=== PATIENT | female | born 1975 | race Caucasian/White ===

== ENCOUNTER → 2020-09-20 09:52 | Outpatient (BNVA) | payer OTHER, SELFPAY | PROVIDERS: Visit Provider Psychiatry & Neurology Psychiatry | DX: Z03.89 Encounter for observation for other suspected diseases and conditions ruled out (principal) | CPT/HCPCS: 80048; 80061; 83036; 85025 ==

== ENCOUNTER → 2021-06-27 08:10 | Outpatient (BNVA) | payer OTHER, SELFPAY | PROVIDERS: Visit Provider Psychiatry & Neurology Psychiatry | DX: Z79.899 Other long term (current) drug therapy (principal); Z03.89 Encounter for observation for other suspected diseases and conditions ruled out; F32.9 Major depressive disorder, single episode, unspecified; F41.9 Anxiety disorder, unspecified | CPT/HCPCS: 80053; 80061; 83036; 84443; 85025 ==

== ENCOUNTER 2022-09-26 07:11 | Outpatient (CLI) | payer OTHER, SELFPAY ==
--- NOTE | 2022-09-26 07:29 | MR_ITS ---
WS: [id number] MRI LUMBAR SPINE NONCONTRAST TECHNIQUE: Sagittal T1, T2 and STIR imaging. Axial T1 and T2 imaging. CLINICAL INFORMATION: CHRONIC LOW BACK PAIN W/O SCIATICA COMPARISON: None. FINDINGS: Mild lumbar curve. No acute compression. Disc space narrowing worse at L5-S1. L1-L2: Normal L2-L3: Mild annular bulging. Slight narrowing of the RIGHT subarticular recess. Mild RIGHT foraminal narrowing. Mild facet arthropathy. L3-L4: Mild annular bulging. Narrowing of the LEFT subarticular recess. Small LEFT foraminal protrusi on with annular fissure slightly impinges the exiting LEFT L3 nerve root. Moderate facet arthropathy. L4-L5: Mild annular bulging with slight effacement of ventral thecal sac. Narrowing of the subarticul ar recess bilaterally. LEFT eccentric disc bulging with mild LEFT greater than RIGHT foraminal narrow ing. Moderate facet arthropathy. L5-S1: Mild annular bulging with a tiny shallow central protrusion. Slight impingement on traversing LEFT S1 nerve root. Moderate facet arthropathy. Mild LEFT foraminal narrowing. Visualized pelvic bony structures: Normal. Paravertebral soft tissues: Normal. Multicystic LEFT ovary partially visualized. This can be followed up with ultrasound. MR/MR lumbar spine wo con* [id number] IMPRESSION: 1. Mild lumbar curve. No acute compression. No high-grade spinal canal stenosi s. 2. Annular bulging L4-L5 slightly impinges the traversing LEFT greater than RI GHT L5 nerve roots. Small LEFT foraminal protrusion with mild LEFT foraminal na rrowing and small annular fissure. Slight contact of the exiting LEFT L4 nerve root. 3. Disc bulging L5-S1 slightly impinges the traversing LEFT S1 nerve root in t he subarticular recess. Mild LEFT L5-S1 foraminal narrowing. 4. Shallow RIGHT subarticular protrusion L2-L3 impinges the traversing RIGHT L 3 nerve root with mild RIGHT L2-L3 foraminal narrowing. 5. Tiny LEFT foraminal protrusion L3-L4 with a small annular fissure slightly contacts the exiting LEFT L3 nerve root with mild LEFT foraminal narrowing. 6. Moderate facet arthropathy L4-L5. 7. Multicystic LEFT ovary partially visualized. This can be followed up with u ltrasound.
== END 2022-09-26 07:12 | disposition home or self-care (01) ==
PROVIDERS: PCP Family Medicine; Visit Provider Family Medicine
DX: G89.29 Other chronic pain (principal); M51.26 Other intervertebral disc displacement, lumbar region; M51.27 Other intervertebral disc displacement, lumbosacral region; M47.816 Spondylosis without myelopathy or radiculopathy, lumbar region
CPT/HCPCS: 72148

== ENCOUNTER 2025-07-24 15:11 | Outpatient (CLI) | payer OTHER, SELFPAY ==
--- NOTE | 2025-07-24 15:16 | MM_ITS ---
WS: [id number] BILATERAL 3D TOMOSYNTHESIS DIGITAL SCREENING MAMMOGRAPHY WITH CAD CLINICAL INFORMATION: ANNUAL SCREEN HISTORY: Screening mammogram. No current complaints. COMPARISON: Baseline TECHNIQUE: Bilateral CC and MLO views. FINDINGS: Scattered fibroglandular densities bilaterally. No suspicious focal mass, asymmetry, calcifications, or architectural distortion. No evidence of malignancy. MM/MM scr BI tomosynthesis [id number] IMPRESSION: DENSITY: There are scattered areas of fibroglandular density. BI-RADS: 1 - Negative. FOLLOW UP: 1 Year Follow-up Recommend return to annual screening mammography.
== END 2025-07-24 15:12 | disposition home or self-care (01) ==
LOC: RAD 15:13
PROVIDERS: PCP Family Medicine; Visit Provider Family Medicine
DX: Z12.31 Encounter for screening mammogram for malignant neoplasm of breast (principal)
CPT/HCPCS: 77063; 77067